=== PATIENT | female | born 1975 | race African-American/Black ===

== ENCOUNTER 2018-10-22 08:24 | Observation (INO) | payer BC ==
[2018-10-22 09:00] LABS: Bilirubin Negative (Negative); Blood, Urine Negative (Negative); Clarity CLEAR (Clear); Glucose, Urine (Dipstick) Negative (Negative); Leukocyte Trace (Negative); Nitrite Negative (Negative); Protein, Urine (Dipstick) Negative (Neg-Trace); Urobilinogen 0.2 mg/dL (0.2-1.0)
[2018-10-22 09:03] LABS: Bacteria/HPF None Seen HPF (None Seen); Hyaline Casts/LPF 0-3 HYALINE CAST LPF (0-3 Hyaline); Pathc Cast-AUWi Flag 0.29 (0-2.49); RBC/HPF 0-3 HPF (0-3); Squamous Epithelial 0-3 HPF (0-3); WBC/HPF 0-3 HPF (0-3)
[2018-10-22 09:08] LABS: Hemoglobin 9.6 g/dL (12.0-16.0); Mean Corpuscular HGB CONC 35.6 g/dL (32.0-36.0); Mean Corpuscular Hemoglobin 25.7 pg (27.0-31.0); Mean Corpuscular Volume 72.2 fL (78.0-98.0); Mean Platelet Volume 6.8 fL (7.4-10.4); Platelet Count 103 thou/uL (130-400); RBC Distribution Width 18.3 % (11.5-14.5); Red Blood Cell (RBC) Count 3.72 mill/uL (4.20-5.40); White Blood Cell (WBC) Count 4.6 thou/uL (4.8-10.8)
[2018-10-22 09:10] LABS: Pregnancy Test - Urine (BHCG) Negative (Negative); Pregu Control Background? CLEAR/WHITE (CLR/WHITE); Pregu Control Bar Appear? YES (CONTROL BAR); Specific Gravity 1.005 (1.002-1.036); Specific Gravity, Urine 1.005 (1.002-1.036)
[2018-10-22 09:22] LABS: ALT (SGPT) 20 U/L (8-55); AST (SGOT) 24 U/L (5-34); Albumin 4.3 g/dL (3.5-5.0); Alkaline Phosphatase 65 U/L (40-150); Anion Gap 14 mmol/L (10-20); BUN (Urea Nitrogen) 12 mg/dL (7.0-18.7); Bilirubin, Total 1.8 mg/dL (0.2-1.2); Calc. Creatinine Clearance 0 mL/min (70-130); Calcium 9.5 mg/dL (7.8-10.44); Carbon Dioxide 24 mmol/L (22-29); Chloride 107 mmol/L (98-107); Estimated GFR-MDRD 76; Globulin 3.2 g/dL (2.4-3.5); Glucose 97 mg/dL (70-105); Lipase 39 U/L (8-78); Potassium 3.7 mmol/L (3.5-5.1); Protein, Total 7.5 g/dL (6.0-8.3); Sodium 141 mmol/L (136-145)
[2018-10-22 09:28] LABS: #Basophils 0.1 thou/uL (0.0-0.2); #Eosinphils 0.1 thou/uL (0.0-0.7); #Lymphocytes 1.2 thou/uL (1.20-3.40); #Monocytes 0.3 thou/uL (0.11-0.59); %Basophils 1.4 % (0.0-1.0); %Eosinophils 2.2 % (0.0-10.0); %Lymphocytes 26.7 % (21.0-51.0); %Monocytes 5.8 % (0.0-10.0); %Neutrophils 63.9 % (42.0-75.0); Anisocytosis SLIGHT = 6-15 cells (100X) (0-5/hpf); Hypochromia MODERATE=16-30 cells (100X) (0-5/hpf); MDiff Complete? YES; Microcytosis MODERATE=15-30 cells (100X) (0-5/hpf); PLT Morphology Comment Appears Decreased; Polychromasia SLIGHT = 2-3 cells (100X) (0-2/hpf); Stomatocytes SLIGHT = 2-5 cells (100X) (0-1/hpf); Target Cells SLIGHT = 2-5 cells (100X) (0-1/hpf)
[2018-10-22] MEDS ORDERED: Morphine 2 MG/ML SYRINGE ONE (09:41)
[2018-10-22] MEDS ORDERED: Ondansetron PF 4 MG/2 ML Vial ONE (09:42)
[2018-10-22 09:56] LABS: Reticulocyte Count 2.6 % (0.5-1.5)
[2018-10-22 10:10] LABS: CKMB 1.5 ng/mL (0-6.6); Troponin I Less than 0.010 ng/mL (< 0.028)
[2018-10-22] MEDS ORDERED: Morphine 4 MG/ML VIAL ONE (10:47)
--- NOTE | 2018-10-22 11:12 | PDOC.FPRHP ---
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 Started around 2am after coming home from a libertarian. She states the multiple sources of pain started at the same time, was severe, coming & going. Patient has been previously hospitalized only once for a sickle cell crisis in her teens. She endorses not hydrating well since it is difficult with work and after coming home from the libertarian. Patient was previously told she had sickle cell trait but it during her last crisis was told it had converted to Sc variant. She is not normally on any type of maintenance or preventative meds for this. She typically experiences joint pains that she has had her whole life. She denies recent illnesses or infections, nausea, vomiting, dysuria , muscle cramps. ED Course: Morphine 8mg, 4mg. Bentyl 20mg. Zofran. 1L NS. - Allergies/Adverse Reactions Allergies Allergy/AdvReac Type Severity Reaction Status Date / Time Sulfa (Sulfonamide Allergy Verified 10/22/18 13:00 Antibiotics) - Home Medications Medication Instructions Recorded Confirmed Type Famciclovir 250 mg PO BID 10/22/18 10/22/18 History Ibuprofen 600 mg PO PRN PRN 10/22/18 10/22/18 History Meloxicam [Mobic] 7.5 mg PO PRN PRN 10/22/18 10/22/18 History - History PMHx: Sickle cell variant (Sc) PSHx: Denies FHx: Brother with full sickle cell disease. Multiple family members with sickle cell trait. Social: Denies smoking & drug use. Endorses etoh on weekends usually <2 drinks at one time. - Review of Systems General: denies: fever/chills, weight/appetite/sleep changes Eyes: denies: eye pain, vision changes ENT: denies: nasal congestion, rhinorrhea Respiratory: denies: cough, congestion, shortness of breath Cardiovascular: denies: chest pain, palpitation Gastrointestinal: reports: abdominal pain. denies: nausea, vomiting, diarrhea, constipation Skin: denies: rashes, lesions, jaundice Musculoskeletal: reports: arthritis/arthralgias (R shoulder pain) Neurological: reports: weakness. denies: numbness, syncope Psychological: denies: anxiety, depression - Vital signs BP: [115/62] HR: [87] RR: [20] Tmax: [98.9] Pox: [96]% on [RA] Wt: [69] - Physical Exam Constitutional: NAD, awake, alert and oriented, well developed HEENT: normocephalic and atraumatic, PERRLA, EOMI, conjunctiva clear, no scleral icterus, grossly normal vision, MMM Neck: supple, FROM, trachea midline Chest: no-tender to palpation, no lesions Heart: RRR, normal S1/S2, no murmurs/rubs/gallops Lungs: CTAB, no respiratory distress, good air movement Abdomen: soft -Abdomen: mildly TTP in epigastric area Musculoskeletal: normal tone, ROM grossly normal Neurological: no focal deficit, CN II-XII intact -Neurological: 5/5 strength in BUE & BLE Skin: no rash/lesions, good turgor, capillary refill <2 seconds Heme/Lymphatic: no unusual bruising or bleeding, no purpura Psychiatric: normal mood and affect, good judgment and insight, intact recent and remote memory FMR H&P: Results - Labs Result Diagrams: 10/23/18 04:34 10/23/18 04:34 Lab results: WBC 4.6 thou/uL (4.8-10.8) L 10/22/18 08:50 Hgb 9.6 g/dL (12.0-16.0) L 10/22/18 08:50 Hct 26.9 % (36.0-47.0) L 10/22/18 08:50 MCV 72.2 fL (78.0-98.0) L 10/22/18 08:50 Plt Count 103 thou/uL (130-400) L 10/22/18 08:50 Neutrophils % 63.9 % (42.0-75.0) 10/22/18 08:50 Sodium 141 mmol/L (136-145) 10/22/18 08:50 Potassium 3.7 mmol/L (3.5-5.1) 10/22/18 08:50 Chloride 107 mmol/L (98-107) 10/22/18 08:50 Carbon Dioxide 24 mmol/L (22-29) 10/22/18 08:50 BUN 12 mg/dL (7.0-18.7) 10/22/18 08:50 Creatinine 0.81 mg/dL (0.6-1.1) 10/22/18 08:50 Glucose 97 mg/dL (70-105) 10/22/18 08:50 Calcium 9.5 mg/dL (7.8-10.44) 10/22/18 08:50 Total Bilirubin 1.8 mg/dL (0.2-1.2) H 10/22/18 08:50 AST 24 U/L (5-34) 10/22/18 08:50 ALT 20 U/L (8-55) 10/22/18 08:50 Alkaline Phosphatase 65 U/L (40-150) 10/22/18 08:50 Creatine Kinase 136 U/L (29-168) 10/22/18 08:50 CK-MB (CK-2) 1.5 ng/mL (0-6.6) 10/22/18 08:50 Serum Total Protein 7.5 g/dL (6.0-8.3) 10/22/18 08:50 Albumin 4.3 g/dL (3.5-5.0) 10/22/18 08:50 Lipase 39 U/L (8-78) 10/22/18 08:50 Urine Ketones Negative mg/dL (Negative) 10/22/18 08:35 Urine Blood Negative (Negative) 10/22/18 08:35 Urine Nitrite Negative (Negative) 10/22/18 08:35 Ur Leukocyte Esterase Trace (Negative) H 10/22/18 08:35 Urine RBC 0-3 HPF (0-3) 10/22/18 08:35 Urine WBC 0-3 HPF (0-3) 10/22/18 08:35 Ur Squamous Epith Cells 0-3 HPF (0-3) 10/22/18 08:35 Urine Bacteria None Seen HPF (None Seen) 10/22/18 08:35 - Radiology Interpretation US - abdomen Status: report reviewed by me FMR H&P: A/P - Problem List (1) Sickle cell crisis Current Visit: Yes Status: Acute Code(s): D57.00 - HB-SS DISEASE WITH CRISIS , UNSPECIFIED (2) Pancytopenia Current Visit: Yes Status: Chronic Code(s): D61.818 - OTHER PANCYTOPENIA (3) Hypochromic microcytic anemia Current Visit: Yes Status: Chronic Code(s): D50.9 - IRON DEFICIENCY ANEMIA, UNSPECIFIED (4) Hyperbilirubinemia Current Visit: Yes Status: Chronic Code(s): E80.6 - OTHER DISORDERS OF BILIRUBIN METABOLISM - Plan 43 yo F with hx of Sickle Cell Variant admitted for pain control in sickle cell crisis Sickle Cell Crisis, Sc Variant -Pain well controlled s/p morhpine 8mg, 4mg -Likely precipitated by inadequate hydration -Due to location of pain w/u for GB & pancreas performed: negative -SOURAV tylenol with morhpine prn for pain control -s/p 1L bolus. Will give another bolus then start on higher dose maintenance fluids -Folic acid, ferrous sulfate -Reticulocyte index 1.11 (<2), consistent with inadequate retic. response. Consider Hypochromic, microcytic anemia -Resume home ferrous sulfate -Daily CBCs Chronic Pancytopenia -Our office records from 2013 show presence of chronic pancytopenia -Sickle cell could be contributing to this -Rx outpatient workup -Monitor with daily CBC Hyperbilirubinemia in setting of sickle cell disease -T bili 1.8 -Likely due to inc. turnover rate of sickled cells -Continue to monitor with AM CMP DVT ppx: lovenox Dispo: Pain control. Adequate fluid resuscitation. Discussed with FMR H&P: Upper Level - Pertinent history 43 yo F here with complaint of back and abdominal pain beginning at about 0230 today. She has a known hx of sickle cell hemoglobin C disease and has had 1 prior pain crisis at the age of 14. She is not currently taking prophylaxis as she rarely has associated pain. 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 ROS General: denies fever Resp: denies SOB or cough CV: denies chest pain Abd: Complains of abdominal pain MSK: complains of back pain Extremities: denies joint pain in UE and LE - Pertinent findings PE: General A&O x4, NAD HEENT atraumatic normocephalic CV RRR no murmur Resp CTA bl Abd Soft, BSx4, no TTP See social media intern portion for full PE, Vitals, and Lab values - Plan Date/Time: 10/22/18 1112 IChristiano DO, have evaluated this patient and agree with findings/plan as outlined by social media intern resident. Pertinent changes/additions are listed here. Sickle cell crisis - Has received 1L NS in ER. Will bolus and additional L and start maintenance IVF - Scheduled tylenol with PRN IV Morphine - does not currently require O2 - Monitor CMP and CBC in am - May consider hydroxyurea in outpatient setting. Pancytopenia - related to hemoglobinopathy. Stable and c/w values from clinic. - Continue PO Fe - Monitor CBC Hyperbilirubinema - likely related to crisis. Will monitor Dispo: patient is stable, but will need help with pain control. Will work to improve hydration. Likely LOS >48 hours. Attending Addendum - Attending Addendum Date/Time: 10/22/18 2526 I personally evaluated the patient and discussed the management with Dr. Nolasco. I agree with the History, Examination, Assessment and Plan documented above with any addition or exceptions noted below. The patient presented to the ER after acute onset of pain around 2 a.m. She has SC disease but states she doesn't normally have pain like this. She admits to being a little dehydrated and states she has been working a lot recently. Labs and imaging reviewed. Pt will be given IV fluids and morphine for pain.
--- NOTE | 2018-10-22 11:18 | ULT ---
RIGHT UPPER QUADRANT ULTRASOUND: INDICATIONS: Abdominal pain and back pain. COMPARISON: None. FINDINGS: The liver, gallbladder, pancreas, and right kidney are normal appearing. The common bile duct measur es 3.2 mm. No sonographic Sue sign is reported. The right kidney measures 9.9 cm in length. IMPRESSION: No acute sonographic abnormality within the right upper quadrant. POS: [facility]
[2018-10-22] MEDS ORDERED: Ondansetron ODT 4 MG TAB PO PRN (12:58)
[2018-10-22 13:03] VITALS: BMI 26.3
[2018-10-22] MEDS ORDERED: Acetaminophen 325 MG TAB PO SCH (13:15)
[2018-10-22] MEDS: Lactated Ringer's 1,000 ML IV SCH ×2 (13:40→23:17)
[2018-10-22] MEDS: Morphine 4 MG/ML VIAL SLOW IVP PRN ×2 (14:30→18:55)
[2018-10-22] MEDS: Acetaminophen 325 MG TAB PO SCH (18:54)
[2018-10-22] MEDS: Ferrous Sulfate 325 MG TAB PO SCH (18:55)
[2018-10-23] MEDS: Acetaminophen 325 MG TAB PO SCH ×5 (00:35→23:32)
[2018-10-23] MEDS: Morphine 4 MG/ML VIAL SLOW IVP PRN ×2 (04:11→09:14)
[2018-10-23] MEDS: Lactated Ringer's 1,000 ML IV SCH ×4 (05:12→23:33)
[2018-10-23 05:44] LABS: #Lymphocytes 0.9 thou/uL (1.20-3.40); #Monocytes 0.3 thou/uL (0.11-0.59); #Neutrophils 3.5 thou/uL (1.40-6.50); %Eosinophils 0.8 % (0.0-10.0); %Lymphocytes 18.6 % (21.0-51.0); %Monocytes 6.9 % (0.0-10.0); %Neutrophils 73.7 % (42.0-75.0); Hemoglobin 7.6 g/dL (12.0-16.0); Mean Corpuscular HGB CONC 35.9 g/dL (32.0-36.0); Mean Corpuscular Hemoglobin 26.3 pg (27.0-31.0); Mean Corpuscular Volume 73.1 fL (78.0-98.0); Mean Platelet Volume 6.2 fL (7.4-10.4); Platelet Count 56 thou/uL (130-400); RBC Distribution Width 18.1 % (11.5-14.5); White Blood Cell (WBC) Count 4.8 thou/uL (4.8-10.8)
[2018-10-23 05:53] LABS: ALT (SGPT) 19 U/L (8-55); AST (SGOT) 24 U/L (5-34); Albumin 3.6 g/dL (3.5-5.0); Alkaline Phosphatase 43 U/L (40-150); Anion Gap 10 mmol/L (10-20); BUN (Urea Nitrogen) 9 mg/dL (7.0-18.7); Calc. Creatinine Clearance 107 mL/min (70-130); Calcium 8.6 mg/dL (7.8-10.44); Carbon Dioxide 24 mmol/L (22-29); Chloride 109 mmol/L (98-107); Estimated GFR-MDRD Greater than 90; Globulin 2.7 g/dL (2.4-3.5); Glucose 105 mg/dL (70-105); Potassium 3.6 mmol/L (3.5-5.1); Protein, Total 6.3 g/dL (6.0-8.3); Sodium 139 mmol/L (136-145)
--- NOTE | 2018-10-23 05:54 | PDOC.FM ---
- Subjective Subjective: No overnight events. Patient resting in bed, mild distress. Patient complains of right arm and leg pain that is achy in character. 8/10 pain. Patient received morphine once overnight around 0400. Patient denies NVD, chest pain, SOB, or abdominal pain. - Objective Vital Signs & Weight: Vital Signs (12 hours) Temp Pulse Resp BP BP Pulse Ox 10/23/18 03:00 98.8 F 75 16 118/76 98 10/22/18 23:00 98.3 F 80 16 111/72 98 10/22/18 20:57 96 10/22/18 19:45 98.3 F 74 16 118/75 96 10/22/18 19:20 98.3 F 74 16 118/75 96 Weight Weight 69.655 kg I&O: 10/21/18 10/22/18 10/23/18 06:59 06:59 06:59 Intake Total 3793 Balance 3793 Result Diagrams: 10/23/18 04:34 10/23/18 04:34 <Rosario Lindsay - Last Filed: 10/23/18 09:21> - Objective Vital Signs & Weight: Weight Weight 69.655 kg I&O: 10/26/18 10/27/18 10/28/18 06:59 06:59 06:59 Intake Total 1000 Balance 1000 Result Diagrams: 10/25/18 06:09 10/25/18 06:09 <Manohar Acevedo - Last Filed: 10/27/18 13:58> Phys Exam - Physical Examination Constitutional: NAD HEENT: PERRLA, moist MMs, sclera anicteric Neck: supple, full ROM Respiratory: clear to auscultation bilateral Cardiovascular: RRR, no significant murmur, no rub Gastrointestinal: soft, non-tender, no distention, positive bowel sounds Musculoskeletal: no edema, pulses present extremities non TTP, limited ROM in right upper extremity due to pain Neurological: non-focal Psychiatric: normal affect, A&O x 3 Skin: no rash <Rosario Lindsay - Last Filed: 10/23/18 09:21> Dx/Plan (1) Sickle cell crisis Code(s): D57.00 - HB-SS DISEASE WITH CRISIS, UNSPECIFIED Status: Acute (2) Hyperbilirubinemia Code(s): E80.6 - OTHER DISORDERS OF BILIRUBIN METABOLISM Status: Chronic (3) Hypochromic microcytic anemia Code(s): D50.9 - IRON DEFICIENCY ANEMIA, UNSPECIFIED Status: Chronic (4) Pancytopenia Code(s): D61.818 - OTHER PANCYTOPENIA Status: Chronic - Plan Plan: 43 yo F with hx of Sickle Cell Variant admitted for pain control in sickle cell crisis Sickle Cell Crisis, Sc Variant - Pain controlled with morphine - will adjust as needed for adequate pain control - Likely precipitated by inadequate hydration - Due to location of pain w/u for GB & pancreas performed: negative - SOURAV tylenol with morphine PRN for pain control - Maintenance IVF - Folic acid, ferrous sulfate - Retic count: 2.6 - adequate response Hypochromic, microcytic anemia - Resume home ferrous sulfate - Hgb dropped from 9.6 to 7.6. Will consider transfusion - Daily CBCs Chronic Pancytopenia - Our office records from 2013 show presence of chronic pancytopenia - Sickle cell could be contributing to this - Rx outpatient workup - Monitor with daily CBC Hyperbilirubinemia in setting of sickle cell disease - T bili 1.8 - Likely due to inc. turnover rate of sickled cells - Continue to monitor with AM CMP DVT ppx: lovenox Dispo: Pain control. Adequate fluid resuscitation. Discussed with Dr. Acevedo <Rosario Lindsay - Last Filed: 10/23/18 09:21> Attending Addendum - Attending Addendum Date/Time: 10/27/18 5515 I personally evaluated the patient and discussed the management with Dr. Lindsay. I agree with the History, Examination, Assessment and Plan documented above with any addition or exceptions noted below. Pain 8/10 currently. Will continue analgesic and hydration. Transition to oral analgesics when controlling adequately with parenteral agent. <Manohar Acevedo - Last Filed: 10/27/18 13:58>
[2018-10-23] MEDS ORDERED: Morphine 2 MG/ML SYRINGE SLOW IVP PRN (07:31)
[2018-10-23] MEDS ORDERED: Enoxaparin Sodium 40 MG/0.4 ML SYRINGE SC SCH (09:00)
[2018-10-23] MEDS: Ferrous Sulfate 325 MG TAB PO SCH ×2 (09:14→16:31)
[2018-10-23] MEDS: Folic Acid 1 MG TAB PO SCH (09:20)
[2018-10-23] MEDS: Morphine 10 MG/ML VIAL SLOW IVP PRN (16:31)
[2018-10-24] MEDS: Morphine 10 MG/ML VIAL SLOW IVP PRN (00:50)
[2018-10-24] MEDS: Acetaminophen 325 MG TAB PO SCH ×4 (05:34→23:30)
[2018-10-24 06:07] LABS: ALT (SGPT) 19 U/L (8-55); AST (SGOT) 21 U/L (5-34); Albumin 3.4 g/dL (3.5-5.0); Alkaline Phosphatase 45 U/L (40-150); Anion Gap 9 mmol/L (10-20); BUN (Urea Nitrogen) 7 mg/dL (7.0-18.7); Calc. Creatinine Clearance 106 mL/min (70-130); Calcium 8.9 mg/dL (7.8-10.44); Carbon Dioxide 26 mmol/L (22-29); Chloride 108 mmol/L (98-107); Estimated GFR-MDRD Greater than 90; Globulin 2.9 g/dL (2.4-3.5); Glucose 111 mg/dL (70-105); Potassium 3.7 mmol/L (3.5-5.1); Protein, Total 6.3 g/dL (6.0-8.3); Sodium 139 mmol/L (136-145)
--- NOTE | 2018-10-24 06:17 | PDOC.FM ---
- Subjective Subjective: Patient resting comfortably in bed. States her pain has been much better controlled. She still complains of pain, 2/ today. She states that she has been able to move around the room with mild soreness in her right arm and leg. Denies dizziness, lightheadedness, headache, vision changes, weakness, NVD, SOB , or chest pain. - Objective Vital Signs & Weight: Vital Signs (12 hours) Temp Pulse Resp BP Pulse Ox 10/24/18 04:15 99.3 F 80 18 119/77 93 L 10/23/18 23:55 99.2 F 88 20 113/74 95 10/23/18 19:10 99.0 F 86 20 129/80 95 Weight Weight 69.655 kg I&O: 10/22/18 10/23/18 10/24/18 06:59 06:59 06:59 Intake Total 3793 3357.8 Balance 3793 3357.8 Result Diagrams: 10/24/18 05:17 10/24/18 05:17 <Rsoario Lindsay - Last Filed: 10/24/18 07:28> - Objective Vital Signs & Weight: Vital Signs (12 hours) Temp Pulse Resp BP Pulse Ox 10/24/18 07:53 98.7 F 79 16 116/74 97 10/24/18 04:15 99.3 F 80 18 119/77 93 L 10/23/18 23:55 99.2 F 88 20 113/74 95 Weight Weight 69.655 kg I&O: 10/23/18 10/24/18 10/25/18 06:59 06:59 06:59 Intake Total 3793 5010.8 Balance 3793 5010.8 Result Diagrams: 10/24/18 05:17 10/24/18 05:17 <Manohar Acevedo - Last Filed: 10/24/18 10:09> Phys Exam - Physical Examination Constitutional: NAD HEENT: PERRLA, moist MMs, sclera anicteric Neck: full ROM Respiratory: clear to auscultation bilateral Cardiovascular: RRR, no significant murmur, no rub Gastrointestinal: soft, non-tender, positive bowel sounds Musculoskeletal: no edema, pulses present Neurological: non-focal Psychiatric: normal affect, A&O x 3 Skin: no rash <Rosario Lindsay - Last Filed: 10/24/18 07:28> Dx/Plan (1) Sickle cell crisis Code(s): D57.00 - HB-SS DISEASE WITH CRISIS, UNSPECIFIED Status: Acute (2) Hyperbilirubinemia Code(s): E80.6 - OTHER DISORDERS OF BILIRUBIN METABOLISM Status: Chronic (3) Hypochromic microcytic anemia Code(s): D50.9 - IRON DEFICIENCY ANEMIA, UNSPECIFIED Status: Chronic (4) Pancytopenia Code(s): D61.818 - OTHER PANCYTOPENIA Status: Chronic - Plan Plan: 43 yo F with hx of Sickle Cell Variant admitted for pain control in sickle cell crisis Sickle Cell Crisis, Sc Variant - Pain controlled with morphine - will adjust as needed for adequate pain control - Likely precipitated by inadequate hydration - Due to location of pain w/u for GB & pancreas performed: negative - SOURAV tylenol with morphine PRN for pain control - Maintenance IVF - Folic acid, ferrous sulfate - Retic count: 2.6 - adequate response Hypochromic, microcytic anemia - Resume home ferrous sulfate - Hgb dropped from 9.6 -> 7.6 -> 7.2. Will consider transfusion is symptoms develop. - Daily CBCs Chronic Pancytopenia - Our office records from 2013 show presence of chronic pancytopenia - Sickle cell could be contributing to this - Rx outpatient workup - Monitor with daily CBC Hyperbilirubinemia in setting of sickle cell disease - T bili 1.8->2 - Likely due to inc. turnover rate of sickled cells - Continue to monitor with AM CMP DVT ppx: lovenox Dispo: Pain control. Adequate fluid resuscitation. <Rosario Lindsay - Last Filed: 10/24/18 07:28> Attending Addendum - Attending Addendum Date/Time: 10/24/18 1004 I personally evaluated the patient and discussed the management with Dr. Lindsay I agree with the History, Examination, Assessment and Plan documented above with any addition or exceptions noted below. 43F with right sided chest and UE pain. Her pain has improved compared to admission and she has remained hemodynamically stable. Plan to transition to oral pain medication with monitoring of symptoms today. If she exhibits continued pain control, possible d/c this afternoon with [facility]. Close f/u in OP setting with her PCP, Dr. Horne. <Acevedo,Manohar A - Last Filed: 10/24/18 10:09>
[2018-10-24 06:19] LABS: #Eosinphils 0.1 thou/uL (0.0-0.7); #Lymphocytes 0.9 thou/uL (1.20-3.40); #Monocytes 0.3 thou/uL (0.11-0.59); #Neutrophils 3.6 thou/uL (1.40-6.50); %Basophils 0.2 % (0.0-1.0); %Eosinophils 1.3 % (0.0-10.0); %Lymphocytes 18.5 % (21.0-51.0); %Monocytes 5.9 % (0.0-10.0); %Neutrophils 74.1 % (42.0-75.0)
[2018-10-24 06:20] LABS: Hemoglobin 7.2 g/dL (12.0-16.0); Mean Corpuscular HGB CONC 34.5 g/dL (32.0-36.0); Mean Corpuscular Hemoglobin 25.3 pg (27.0-31.0); Mean Corpuscular Volume 73.3 fL (78.0-98.0); Mean Platelet Volume 6.6 fL (7.4-10.4); Platelet Count 59 thou/uL (130-400); Red Blood Cell (RBC) Count 2.83 mill/uL (4.20-5.40); White Blood Cell (WBC) Count 4.8 thou/uL (4.8-10.8)
[2018-10-24 06:26] LABS: Band 2 % (5-11); Hypochromia SLIGHT = 6-15 cells (100X) (0-5/hpf); Lymphocytes 16 % (21-51); MDiff Complete? YES; Microcytosis SLIGHT = 6-15 cells (100X) (0-5/hpf); Monocytes 2 % (0-10); Neutrophil 80 % (42-75); PLT Morphology Comment Appears Decreased
[2018-10-24] MEDS ORDERED: Lactated Ringer's 1,000 ML IV SCH (07:45)
[2018-10-24] MEDS: Ferrous Sulfate 325 MG TAB PO SCH ×2 (08:05→17:43)
[2018-10-24] MEDS: Folic Acid 1 MG TAB PO SCH (08:05)
[2018-10-24] MEDS ORDERED: Meloxicam 7.5 MG TAB PO PRN (10:12)
[2018-10-24] MEDS ORDERED: Ibuprofen 600 MG TAB PO PRN (10:12)
[2018-10-24] MEDS ORDERED: HYDROcodone/Acetaminophen 10/325 mg Tablet PO PRN (10:13)
[2018-10-24] MEDS: Famciclovir 500 MG TAB PO SCH (20:16)
[2018-10-25] MEDS: Acetaminophen 325 MG TAB PO SCH ×2 (05:28→13:41)
--- NOTE | 2018-10-25 06:12 | PDOC.FM ---
Addendum entered and electronically signed by Rosario Lindsay MD 10/25/18 08:06 : potassium 3.3 on 10/25/18 - will replace Original Note: - Subjective Subjective: Patient resting comfortably in bed. No overnight events. Patient has no complaints or concerns. States her pain is resolved, 0/10. Denies SOB, chest pain, extremity, fever or chills. Denies dizzy or lightheadedness. - Objective Vital Signs & Weight: Vital Signs (12 hours) Temp Pulse Resp BP Pulse Ox 10/25/18 04:00 98.6 F 70 16 111/72 98 10/25/18 00:00 98.4 F 69 16 116/80 98 10/24/18 20:00 98.6 F 77 16 105/72 98 Weight Weight 69.655 kg I&O: 10/23/18 10/24/18 10/25/18 06:59 06:59 06:59 Intake Total 3793 5010.8 2887 Balance 3793 5010.8 2887 Result Diagrams: 10/25/18 06:09 10/25/18 06:09 <Rosario Lindsay - Last Filed: 10/25/18 07:59> - Objective Vital Signs & Weight: Vital Signs (12 hours) Temp Pulse Resp BP Pulse Ox 10/25/18 07:45 98.8 F 71 16 116/75 96 10/25/18 04:00 98.6 F 70 16 111/72 98 10/25/18 00:00 98.4 F 69 16 116/80 98 Weight Weight 69.655 kg I&O: 10/24/18 10/25/18 10/26/18 06:59 06:59 06:59 Intake Total 5010.8 2887 Balance 5010.8 2887 Result Diagrams: 10/25/18 06:09 10/25/18 06:09 <Manohar Acevedo - Last Filed: 10/25/18 09:14> Phys Exam - Physical Examination Constitutional: NAD HEENT: PERRLA, moist MMs, sclera anicteric Neck: full ROM Respiratory: clear to auscultation bilateral Cardiovascular: RRR Gastrointestinal: soft, non-tender Musculoskeletal: no edema Neurological: non-focal, moves all 4 limbs Psychiatric: normal affect, A&O x 3 Skin: no rash <Rosario Lindsay - Last Filed: 10/25/18 07:59> Dx/Plan (1) Sickle cell crisis Code(s): D57.00 - HB-SS DISEASE WITH CRISIS, UNSPECIFIED Status: Acute (2) Hyperbilirubinemia Code(s): E80.6 - OTHER DISORDERS OF BILIRUBIN METABOLISM Status: Chronic (3) Hypochromic microcytic anemia Code(s): D50.9 - IRON DEFICIENCY ANEMIA, UNSPECIFIED Status: Chronic (4) Pancytopenia Code(s): D61.818 - OTHER PANCYTOPENIA Status: Chronic - Plan Plan: 43 yo F with hx of Sickle Cell Variant admitted for pain control in sickle cell crisis Sickle Cell Crisis, Sc Variant - Pain controlled tylenol and motrin; morphine discontinued; [place] for severe pain - patient did not require yesterday - Likely precipitated by inadequate hydration - Folic acid, ferrous sulfate Hypochromic, microcytic anemia - Resume home ferrous sulfate - Hgb dropped from 9.6 -> 7.6 -> 7.2->7.3. Will consider transfusion is symptoms develop. - Daily CBCs Chronic Pancytopenia - Our office records from 2013 show presence of chronic pancytopenia - Sickle cell could be contributing to this - Rx outpatient workup - Monitor with daily CBC Hyperbilirubinemia in setting of sickle cell disease - T bili 1.8->2 - Likely due to inc. turnover rate of sickled cells - Continue to monitor with AM CMP DVT ppx: lovenox Dispo: pain well controlled. discharge today <Rosario Lindsay - Last Filed: 10/25/18 07:59> Attending Addendum - Attending Addendum Date/Time: 10/25/18 0905 I personally evaluated the patient and discussed the management with Dr. Lindsay I agree with the History, Examination, Assessment and Plan documented above with any addition or exceptions noted below. 43F here for Hg C pain crisis. Pain is well controlled with PO medication. Patient feels she is back to baseline. Advised hematology referral and close f/ u with her OP PCP, who is aware of interventions done during this hospitalization. Discharge today. <Manohar Acevedo - Last Filed: 10/25/18 09:14>
[2018-10-25 07:01] LABS: #Eosinphils 0.1 thou/uL (0.0-0.7); #Lymphocytes 0.8 thou/uL (1.20-3.40); #Monocytes 0.2 thou/uL (0.11-0.59); #Neutrophils 2.8 thou/uL (1.40-6.50); %Basophils 0.2 % (0.0-1.0); %Eosinophils 2.7 % (0.0-10.0); %Lymphocytes 20.5 % (21.0-51.0); %Neutrophils 70.7 % (42.0-75.0); Hemoglobin 7.3 g/dL (12.0-16.0); Mean Corpuscular HGB CONC 35.1 g/dL (32.0-36.0); Mean Corpuscular Hemoglobin 25.6 pg (27.0-31.0); Platelet Count 67 thou/uL (130-400); RBC Distribution Width 18.1 % (11.5-14.5); Red Blood Cell (RBC) Count 2.87 mill/uL (4.20-5.40); White Blood Cell (WBC) Count 3.9 thou/uL (4.8-10.8)
[2018-10-25 07:17] LABS: ALT (SGPT) 15 U/L (8-55); AST (SGOT) 17 U/L (5-34); Albumin 3.4 g/dL (3.5-5.0); Alkaline Phosphatase 48 U/L (40-150); Anion Gap 9 mmol/L (10-20); BUN (Urea Nitrogen) 7 mg/dL (7.0-18.7); Bilirubin, Total 1.7 mg/dL (0.2-1.2); Calc. Creatinine Clearance 104 mL/min (70-130); Carbon Dioxide 27 mmol/L (22-29); Chloride 107 mmol/L (98-107); Estimated GFR-MDRD Greater than 90; Glucose 99 mg/dL (70-105); Potassium 3.3 mmol/L (3.5-5.1); Protein, Total 6.4 g/dL (6.0-8.3); Sodium 140 mmol/L (136-145)
[2018-10-25 07:29] LABS: Band 23 % (5-11); Eosinophils 3 % (0-10); Lymphocytes 10 % (21-51); MDiff Complete? YES; Metamyelocyte 1 % (0-0); Monocytes 8 % (0-10); Neutrophil 54 % (42-75); PLT Morphology Comment Appears Decreased; Polychromasia SLIGHT = 2-3 cells (100X) (0-2/hpf); Reactive Lymphocytes 1 % (0-10)
[2018-10-25] MEDS: Famciclovir 500 MG TAB PO SCH (08:11)
[2018-10-25] MEDS: Folic Acid 1 MG TAB PO SCH (08:12)
[2018-10-25] MEDS: Ferrous Sulfate 325 MG TAB PO SCH (08:12)
[2018-10-25] MEDS ORDERED: Potassium Chloride 20 MEQ TAB PO SCH (09:00)
[2018-10-25 13:44] VITALS: BP 109/73; TEMP 98
--- NOTE | 2018-10-27 14:23 | DIS ---
DATE OF ADMISSION: 10/22/2018 DATE OF DISCHARGE: 10/25/2018 RESIDENT: Rosario Lindsay MD. ADMITTING ATTENDING: Corinna Mercer MD. DISCHARGE ATTENDING: Manohar Acevedo MD. CONSULTS: None. PROCEDURES: None. PRIMARY DIAGNOSIS: Pain crisis secondary to hemoglobin C disease. SECONDARY DIAGNOSES: Hypochromic microcytic anemia, chronic pancytopenia, hyperbilirubinemia in the setting of hemoglobin C disease. DISCHARGE MEDICATIONS: 1. Tylenol 650 mg oral every 6 hours. 2. Ganciclovir 250 mg oral twice daily. 3. Ibuprofen 600 mg oral as needed. 4. Mobic 7.5 mg oral as needed. Discontinued medications: None. HISTORY OF PRESENT ILLNESS/HOSPITAL COURSE: This is a 43-year-old female with sickle cell variant and came to the ED with 10/10 epigastric, back, and right shoulder pain. The patient stated that the pain had started that night after coming home from a alliance party. The patient states that the pain was severe and intermittent. The patient has been previously hospitalized only one other time for sickle cell crisis in her teens. The patient endorses not hydrating well prior to this episode. The patient is not normally on any type of maintenance or preventive medications for this. Her home medications include meloxicam and ibuprofen. The patient denied shortness of breath or chest pain at this time. In the ED, the patient was given morphine, Bentyl, Zofran, and 1 L of normal saline. The patient was admitted and given adequate fluid resuscitation as well as folic acid and ferrous sulfate. Due to location of pain, workup for gallbladder and pancreas performed and that was negative. The patient was given morphine for pain and converted to p.o. pain medications once pain had been well controlled. The patient's reticulocyte count was initially 1.11 and bumped up to 2. The patient has chronic pancytopenia as shown by office records from 2013. The patient's total bili was also elevated at 1.8, which is likely due to turnover of sickle cells. The patient had resolution of symptoms by day of discharge and had been pain controlled with Tylenol and ibuprofen. Recommended for the patient to follow up with Hematology as well as PCP for management of symptoms. DISPOSITION: Stable. DISCHARGE INSTRUCTIONS: 1. Location: Home. 2. Diet: Regular. 3. Activity: [place]. 4. Follow up: With PCP within 1 week and Hematology within 1 to 2 months. Job ID: [id number] MTDD
== END 2018-10-25 14:17 | disposition home or self-care (01) ==
LOC: ERS 08:24 → T4-B 12:52
PROVIDERS: ADMIT Family Medicine; ATTEND Family Medicine
DX: D57.219 Sickle-cell/Hb-C disease with crisis, unspecified (principal); D61.818 Other pancytopenia; D50.9 Iron deficiency anemia, unspecified; E80.6 Other disorders of bilirubin metabolism; Z79.899 Other long term (current) drug therapy; Z88.2 Allergy status to sulfonamides
CPT/HCPCS: 36415; 76705; 80053; 81003; 81015; 81025; 82553; 83690; 84484; 85025; 85046; 93005; 96361; 96372; 96374; 96375; 96376; G0378; J1650; J2270; J2405; Q0162

== ENCOUNTER 2019-08-20 13:11 | Outpatient (CLI) | payer BC ==
--- NOTE | 2019-08-20 15:28 | MMO ---
Bilateral MAMMO Bilat Screen [facility]. CLINICAL HISTORY: Patient is 44 years old and is seen for screening. The patient has the following family history of breast cancer: paternal aunt, at age 50. The patient has no personal history of cancer. VIEWS: The views performed were: bilateral craniocaudal with tomosynthesis and bilateral mediolateral oblique with tomosynthesis. FILMS COMPARED: The present examination has been compared to prior imaging studies performed at 09/24/2016 and 12/08/2017. This study has been interpreted with the assistance of computer-aided detection. MAMMOGRAM FINDINGS: There are scattered fibroglandular densities. There are no suspicious masses, suspicious calcifications, or new areas of architectural distortion. IMPRESSION: THERE IS NO MAMMOGRAPHIC EVIDENCE OF MALIGNANCY. A ROUTINE FOLLOW-UP MAMMOGRAM IN 1 YEAR IS RECOMMENDED. THE RESULTS OF THIS EXAM WERE SENT TO THE PATIENT. ACR BI-RADS Category 1 - Negative MAMMOGRAPHY NOTE: 1. A negative mammogram report should not delay a biopsy if a dominant of clinically suspicious mass is present. 2. Approximately 10% to 15% of breast cancers are not detected by mammography. 3. Adenosis and dense breasts may obscure an underlying neoplasm. Reported by: MARIA LUISA AVILA MD Electonically Signed: [id number]
== END 2019-08-20 13:12 | disposition home or self-care (01) ==
LOC: BICMAMMO 13:11
PROVIDERS: ATTEND Physician Assistant
DX: Z12.31 Encounter for screening mammogram for malignant neoplasm of breast (principal); Z80.3 Family history of malignant neoplasm of breast
CPT/HCPCS: 77063; 77067